=== PATIENT | female | born 1965 | race American Indian/Alaskan Native ===

== ENCOUNTER 2019-08-27 10:25 | Emergency (ER) | payer BC, MEDICARE ==
[2019-08-27 11:04] VITALS: BP 222/143
--- NOTE | 2019-08-27 11:35 | Emergency Department Report ---
Chief Complaint: Extremity Injury, Upper Stated Complaint: LFT HAND POSS DISLOCATED Time Seen by Provider: 08/27/19 11:26 - Exam Vital Signs: Vital Signs 08/27/19 11:02 Temperature 99.1 F Pulse Rate 108 H Respiratory 18 Rate Blood Pressure 222/143 O2 Sat by Pulse 97 Oximetry MSE screening note: Focused history and physical exam performed. Due to findings the following was ordered: 54 yo female injured slammed her left hand in door on 08/08/19. She was seen at ER in [place] and had reduction of her 3rd and 4th digit. She had on going pain seen at Urgent care yesterday and was told her finger is still dislocated. Left third digit is swollen and deformed. Xray of the left hand ordered. ED Disposition for [facility] Condition: Stable
--- NOTE | 2019-08-27 12:22 | XRay Report ---
Left hand-3 views INDICATION: LEFT HAND INJURY. COMPARISON: None. IMPRESSION: Posterior dislocation of the middle phalanx of the long finger at the level of the PIP j oint with surrounding soft tissue swelling and no discrete fracture identified. No significant DJD. Signer Name: Vipul Wilcox MD Signed: 08/27/2019 12:18 PM Workstation Name: [id number]
--- NOTE | 2019-08-27 13:11 | Emergency Department Report ---
ED Upper Extremity Inj HPI - General Chief Complaint: Extremity Injury, Upper Stated Complaint: LFT HAND POSS DISLOCATED Time Seen by Provider: 08/27/19 11:26 Source: patient Mode of arrival: Ambulatory Limitations: No Limitations - History of Present Illness Initial Comments: 54 yo female injured slammed her left hand in door on 08/08/19. She was seen at ER in [place] and had reduction of her 3rd and 4th digit 2 weeks ago. She had on going pain seen at Urgent care yesterday and was told her finger is still dislocated. Left third digit is swollen and deformed. Onset/Timin -: week(s) Other Extremity Injury: Fingers: Left (3rd pip) Other Injuries: none Improves With: none Worsens With: none Context: crush Associated Symptoms: denies other symptoms - Related Data Previous Rx's Medication Instructions Recorded Last Taken Type HYDROcodone/APAP 7.5-325 [[place] 1 each PO Q6HR PRN #12 tablet 08/27/19 Unknown Rx 7.5/325] Allergies Allergy/AdvReac Type Severity Reaction Status Date / Time azithromycin [From Zithromax] Allergy Unknown Verified 08/27/19 11:30 insulin detemir Allergy Unknown Verified 08/27/19 11:30 [From Levemir U-100 Insulin] ketorolac [From Toradol] Allergy Unknown Verified 08/27/19 11:30 ED Review of Systems ROS: Stated complaint: LFT HAND POSS DISLOCATED Other details as noted in HPI Comment: All other systems reviewed and negative ED Past Medical Hx - Past Medical History Previous Medical History?: Yes Hx Hypertension: Yes Hx Congestive Heart Failure: Yes Hx Diabetes: Yes Hx Renal Disease: Yes Additional medical history: gout, lupus, sgrogenes - Surgical History Past Surgical History?: Yes Hx Cholecystectomy: Yes Additional Surgical History: hysterectomy,tubiligation,left knee scopes, right knee scope, mass under chin, esphoageal - Social History Smoking Status: Never Smoker Substance Use Type: None - Medications Home Medications: Home Medications Medication Instructions Recorded Confirmed Last Taken Type HYDROcodone/APAP 7.5-325 [[place] 1 each PO Q6HR PRN #12 tablet 08/27/19 Unknown Rx 7.5/325] ED Physical Exam - General Limitations: No Limitations General appearance: alert, in no apparent distress - Head Head exam: Present: atraumatic, normocephalic - Eye Eye exam: Present: normal appearance - Expanded Upper Extremity Exam Left Shoulder Exam: Present: normal inspection Upper Arm exam: Present: normal inspection Elbow exam: Present: normal inspection Forearm Wrist exam: Present: normal inspection Hand Wrist exam: Present: tenderness, swelling, deformity (third PIP), erythema. Absent: full ROM Vascular: Present: normal capillary refill - Neurological Exam Neurological exam: Present: alert, oriented X3 - Psychiatric Psychiatric exam: Present: normal affect, normal mood - Skin Skin exam: Present: warm, dry, intact, normal color. Absent: rash ED Course Vital Signs 08/27/19 11:02 Temperature 99.1 F Pulse Rate 108 H Respiratory 18 Rate Blood Pressure 222/143 O2 Sat by Pulse 97 Oximetry ED Medical Decision Making - Radiology Data Radiology results: report reviewed Patient: SYD SMITH MR#: [id number] : 1965 Acct:[id number] Age/Sex: 54 / F ADM Date: 08/27/19 Loc: ED Attending Dr: Ordering Physician: CANDY POTTS Date of Service: 08/27/19 Procedure(s): XR hand 3+V LT Accession Number(s): [id number] cc: CANDY POTTS Fluoro Time In Minutes: Left hand-3 views INDICATION: LEFT HAND INJURY. COMPARISON: None. IMPRESSION: Posterior dislocation of the middle phalanx of the long finger at the level of the PIP joint with surrounding soft tissue swelling and no discrete fracture identified. No significant DJD. Signer Name: Vipul Wilcox MD Signed: 08/27/2019 12:18 PM Workstation Name: [place] [id number] Transcribed By: TATI Dictated By: Vipul Wilcox MD Electronically Authenticated By: Vipul Wilcox MD Signed Date/Time: 08/27/191217 DD/ 16 TD/TT: Critical care attestation.: If time is entered above; I have spent that time in minutes in the direct care of this critically ill patient, excluding procedure time. ED Disposition Clinical Impression: Dislocation, fingers Disposition: - TO HOME OR SELFCARE Is pt being admited?: No Does the pt Need Aspirin: No Condition: Stable Instructions: Finger Dislocation (ED) Additional Instructions: Please keep splint on finger as much as possible. Follow-up with Dr. Sims orthopedic provider. Take pain medication as needed. Do not operate heavy machinery while taking [place]. Prescriptions: HYDROcodone/APAP 7.5-325 [[place] 7.5/325] 1 each PO Q6HR PRN #12 tablet PRN Reason: Pain Referrals: PRIMARY MD RAFAEL [Primary Care Provider] - 3-5 Days LACEY SIMS MD [Staff Physician] - 3-5 Days Forms: Work/School Release Form(ED)
[2019-08-27] MEDS ORDERED: oxyCODONE /ACETAMINOPHEN 5-325MG TAB PO ONE (13:12)
[2019-08-27] MEDS ORDERED: LIDOCAINE (1%) 10 MG/1 ML VIAL 20 ML MDV INFILTRATI ONE (13:58)
--- NOTE | 2019-08-27 14:34 | Event Note ---
Date: 08/27/19 at the request of JAELYN Moran, gentle reduction was attempted using gentle distal traction on left middle finger. unable to reduce. patient states its been dislocated for 2 weeks. she has intact distal neuro vascular integrity. will have patient splinted, recommended JAELYN discuss with orthopedics. as finger has been dislocated for 2 weeks, it is reasonable to d/c with splint and out patient follow up hypertension reviewed and appreciated please reference the [facility] clinical policy on asymptomatic hypertension Vital Signs 08/27/19 11:02 Temperature 99.1 F Pulse Rate 108 H Respiratory 18 Rate Blood Pressure 222/143 O2 Sat by Pulse 97 Oximetry
== END 2019-08-27 15:56 | disposition home or self-care (01) ==
LOC: ED 10:25
DX: S63.283A Dislocation of proximal interphalangeal joint of left middle finger, initial encounter (principal); I11.0 Hypertensive heart disease with heart failure; I50.9 Heart failure, unspecified; E11.9 Type 2 diabetes mellitus without complications; Z90.49 Acquired absence of other specified parts of digestive tract; Z90.710 Acquired absence of both cervix and uterus; Z98.51 Tubal ligation status; Z79.899 Other long term (current) drug therapy; Z88.8 Allergy status to other drugs, medicaments and biological substances; W23.0XXA Caught, crushed, jammed, or pinched between moving objects, initial encounter; Y93.89 Activity, other specified; Y92.89 Other specified places as the place of occurrence of the external cause; Y99.8 Other external cause status